=== PATIENT | female | born 1950 | race Caucasian/White ===

== ENCOUNTER 2017-07-23 22:25 | Inpatient (IN) | payer MEDICARE, MEDICAID ==
[~2017-07-23] VITALS: Ht 170.2 cm; Wt 155.1 kg
[~2017-07-23 22:25] MED LIST: BISA-81 PO; CITA20TA11 PO; CROM10DR2 EACHEYE; ETOMIDATE 2MG/ML 10ML VIAL IV ONE; LEVO175T7 PO; LEVO300T2 PO; LOV30 SUBCUT; Levothyroxine Sodium PO; MULT-1146 PO; OXYC10TA48 PO; SUCCINYLCHOLINE CHLORIDE 200MG/10ML VIAL IV ONE; ZOLP10TA2 PO; vanco IV
[2017-07-23] MEDS ORDERED: ASPIRIN 81MG TABLET PO STA (22:32)
[2017-07-23] MEDS ORDERED: METHYLPREDNISOLONE SOD SUCC 125 MG/2 ML VIAL IV STA (22:32)
[2017-07-23] MEDS ORDERED: IPRATROPIUM BROMIDE (0.02%) 0.5MG/2.5ML NEB HHN STA (22:32)
[2017-07-23] MEDS ORDERED: ALBUTEROL (0.083%) 2.5MG/3ML NEB HHN STA (22:32)
[2017-07-23] MEDS ORDERED: NITROGLYCERIN OINT 1GM/INCH UDPKT TD STA (22:32)
[2017-07-23] MEDS ORDERED: FUROSEMIDE 40MG/4ML VIAL IV STA (22:32)
[2017-07-23 22:54] LABS: BASOPHILS % 0.9 % (0.0-2.0); EOSINOPHILS % 3.4 % (0.0-5.0); HEMATOCRIT. 36.7 % (36.0-48.0); HEMOGLOBIN. 11.2 g/dL (12.0-16.0); LYMPHOCYTES % 12.2 % (20.0-50.0); MEAN CORPUSCULAR VOLUME 82.3 fL (81.0-99.0); MEAN PLATELET VOLUME 7.1 fl (7.4-10.4); MONOCYTES % 5.3 % (2.0-8.0); NEUTROPHILS % 78.2 % (40.0-76.0); PLATELET 286 x1000/uL (130-400); RED BLOOD CELL COUNT 4.46 mill/uL (4.2-5.4); RED CELL DISTRIBUTION WIDTH 21.1 % (11.6-14.6)
[2017-07-23 23:01] LABS: CHLORIDE 99 mEq/L (98-107)
[2017-07-23 23:02] LABS: INR 1.1; PARTIAL THROMBOPLASTIN TIME 26.5 sec (23.4-31.0); PROTHROMBIN TIME 11.3 sec (9.4-11.6)
[2017-07-23 23:05] LABS: CARBON DIOXIDE 37 mEq/L (21-32)
[2017-07-23 23:12] LABS: TROPONIN I < 0.02 ng/mL (0.00-0.04)
[2017-07-23] MEDS ORDERED: ASPIRIN 300MG SUPP PR ONE (23:45)
[2017-07-23] MEDS ORDERED: LORAZEPAM 2MG/ML CPJ IV PRN (23:45)
[2017-07-23] MEDS ORDERED: CLONIDINE 0.1MG TABLET PO PRN (23:45)
[2017-07-23] MEDS ORDERED: IPRATROPIUM/ALBUTEROL 0.5-3(2.5)MG/3ML NEB INH PRN (23:45)
[2017-07-23] MEDS ORDERED: MORPHINE SULFATE 4 MG/ML CPJ (NOT FOR IM USE) IV PRN (23:45)
[2017-07-23 23:53] LABS: BG BASE EXCESS 10.6 mmol/L (-2.0-2.0); BG BILEVEL POS AIRWAY PRESSURE 15/5; BG DEOXYHEMOGLOBIN 1.4 % (0.0-5.0); BG FRACTION INSPIRED OXYGEN 100; BG HCO3 ACT 44.3 mmol/L (22.0-26.0); BG METHEMOGLOBIN 0.4 % (0.0-1.5); BG OXYGEN SATURATION 98.6 % (92.0-98.5); BG OXYHEMOGLOBIN 97.2 % (94.0-97.0); BG PCO2 137.1 mmHg (35.0-45.0); BG PH 7.127 (7.350-7.450); BG PO2 181.4 mmHg (75.0-100.0); BG SAMPLE SITE RIGHT BRACHIAL; BG VENT MODE MASK - BIPAP
[2017-07-24] VITALS (77 sets, daily range): BP systolic 92–162; BP diastolic 43–93
[2017-07-24] MEDS ORDERED: SODIUM POLYSTYRENE SULFONATE 15 G/60 ML BOT NG ONE (00:45)
[2017-07-24] MEDS ORDERED: CEFTRIAXONE 1 G PREMIX 50 ML IV ONE (00:45)
[2017-07-24] MEDS ORDERED: SODIUM BICARBONATE 8.4% 1 MEQ/ML 50ML SYR IV ONE (00:45)
[2017-07-24] MEDS ORDERED: INSULIN REGULAR (HUMULIN R) 300UNITS/3ML IV ONE (00:45)
[2017-07-24] MEDS ORDERED: DEXTROSE 50% WATER 50ML SYRINGE IV ONE (00:45)
[2017-07-24] MEDS ORDERED: PROPOFOL 10MG/ML 100ML 100 ML IV ONE ×2 (00:45→04:41)
[2017-07-24] MEDS ORDERED: SUCCINYLCHOLINE CHLORIDE 200MG/10ML VIAL IV ONE (00:45)
[2017-07-24] MEDS ORDERED: ETOMIDATE 2MG/ML 10ML VIAL IV ONE (00:45)
[2017-07-24 02:43] LABS: BG BASE EXCESS 12.6 mmol/L (-2.0-2.0); BG CARBOXYHEMOGLOBIN 0.8 % (0.5-1.5); BG FRACTION INSPIRED OXYGEN 100; BG HCO3 ACT 39.8 mmol/L (22.0-26.0); BG METHEMOGLOBIN 0.2 % (0.0-1.5); BG PCO2 66.4 mmHg (35.0-45.0); BG PH 7.396 (7.350-7.450); BG PO2 109.4 mmHg (75.0-100.0); BG SAMPLE SITE RIGHT BRACHIAL; BG TIDAL VOLUME(mL) 650 mL; BG TOTAL HEMOGLOBIN 11.4 g/dL (12.0-18.0); BG VENT MODE VENT - A/C; BG VENT RATE 14 set
[2017-07-24 02:54] LABS: CLARITY URINE CLEAR (CLEAR); COLOR URINE YELLOW (YELLOW); GLUCOSE URINE NEGATIVE (NEGATIVE); KETONES URINE NEGATIVE (NEGATIVE); LEUKOCYTE ESTERASE URINE NEGATIVE (NEGATIVE); NITRITE URINE NEGATIVE (NEGATIVE); OCCULT BLOOD URINE NEGATIVE (NEGATIVE); PROTEIN URINE NEGATIVE (NEGATIVE); SPECIFIC GRAVITY URINE 1.018 (1.005-1.030); UROBILINOGEN URINE 0.2 E.U./dL (0.2-1.0)
[2017-07-24 03:24] LABS: *AMPHETAMINES SCREEN URINE NEGATIVE (NEGATIVE); *BARBITURATES SCREEN URINE NEGATIVE (NEGATIVE); *BENZODIAZEPINES SCREEN URINE NEGATIVE (NEGATIVE); *COCAINE SCREEN URINE NEGATIVE (NEGATIVE); CANNABINOID URINE SCREEN NEGATIVE (NEGATIVE); METHADONE URINE SCREEN NEGATIVE (NEGATIVE); OPIATES URINE SCREEN PRESUMTIVE POSITIVE (NEGATIVE); PHENCYCLIDINE URINE SCREEN NEGATIVE (NEGATIVE)
[2017-07-24] MEDS ORDERED: PROPOFOL 10MG/ML 100ML 100 ML IV SCH (04:45)
[2017-07-24] MEDS ORDERED: MORPHINE SULFATE 2 MG/ML CPJ (NOT FOR IM USE) IV PRN (07:07)
[2017-07-24] MEDS ORDERED: DEXTROSE 50% WATER 50ML SYRINGE IV PRN (08:30)
[2017-07-24] MEDS: THIAMINE HCL 100MG TABLET PO SCH (08:54)
[2017-07-24] MEDS: ASPIRIN 81MG TABLET NG SCH (08:54)
[2017-07-24] MEDS: FOLIC ACID 1MG TABLET PO SCH (08:54)
[2017-07-24] MEDS: FUROSEMIDE 40MG/4ML VIAL IV SCH ×2 (08:54→16:58)
[2017-07-24] MEDS: METHYLPREDNISOLONE SOD SUCC 125 MG/2 ML VIAL IV SCH ×2 (08:55→17:01)
[2017-07-24] MEDS: ENOXAPARIN 40MG/0.4ML SYR SUBCUT SCH ×2 (08:55→20:46)
[2017-07-24] MEDS: IPRATROPIUM/ALBUTEROL 0.5-3(2.5)MG/3ML NEB HHN SCH ×3 (08:59→20:40)
[2017-07-24] MEDS: BUDESONIDE 0.5MG/2ML NEB HHN SCH ×2 (09:00→20:39)
[2017-07-24] MEDS ORDERED: ASPIRIN 81MG EC TABLET PO SCH (09:00)
[2017-07-24] MEDS: CEFEPIME 1,000 MG in DEXTROSE 5% WATER 50 ML IV SCH ×2 (09:31→20:46)
[2017-07-24] MEDS: PANTOPRAZOLE SODIUM 40 MG/VIAL IV SCH (09:32)
[2017-07-24 10:27] LABS: HEMATOCRIT. 35.5 % (36.0-48.0); MEAN CORPUSCULAR HEMOGLOBIN 25.1 pg (28.0-32.0); MEAN CORPUSCULAR VOLUME 80.9 fL (81.0-99.0); RED BLOOD CELL COUNT 4.39 mill/uL (4.2-5.4)
[2017-07-24] MEDS: METRONIDAZOLE 500 MG PREMIX 100 ML IV SCH ×2 (10:36→17:01)
[2017-07-24 10:52] LABS: CARBON DIOXIDE 33 mEq/L (21-32); CHLORIDE 99 mEq/L (98-107); CREATINE KINASE 71 IU/L (26-192); CREATINE KINASE MB FRACTION 0.6 ng/mL (0.5-3.6); HDL CHOLESTEROL 38 mg/dL (40-59); LDL CHOLESTEROL 84 mg/dL (5-100); T4 FREE 0.78 ng/dL (0.76-1.46); TROPONIN I < 0.02 ng/mL (0.00-0.04)
[2017-07-24 11:13] LABS: MEAN PLATELET VOLUME 7.9 fl (7.4-10.4); PLATELET 232 x1000/uL (130-400)
[2017-07-24 11:16] LABS: PLATELET ESTIMATE NORMAL
[2017-07-24] MEDS ORDERED: BLOOD SUGAR DIAGNOSTIC STRIP TEST SCH (11:30)
[2017-07-24] MEDS ORDERED: INSULIN LISPRO 100 UNITS/ML SUBCUT SCH (12:00)
[2017-07-24] MEDS ORDERED: SODIUM POLYSTYRENE SULFONATE 15 G/60 ML BOT PO NR (13:45)
[2017-07-24 14:56] LABS: CREATINE KINASE 70 IU/L (26-192); CREATINE KINASE MB FRACTION < 0.5 ng/mL (0.5-3.6)
[2017-07-24] MEDS: LEVOTHYROXINE SODIUM 175MCG TABLET PO SCH (16:58)
[2017-07-24] MEDS: BLOOD SUGAR DIAGNOSTIC STRIP TEST SCH ×2 (17:49→23:20)
[2017-07-24] MEDS: INSULIN LISPRO 100 UNITS/ML SUBCUT SCH ×2 (18:36→23:21)
[2017-07-24] MEDS: PROPOFOL 10MG/ML 100ML 100 ML IV PRN (20:06)
[2017-07-25] VITALS (88 sets, daily range): BP systolic 95–152; BP diastolic 48–96
[2017-07-25] MEDS: METRONIDAZOLE 500 MG PREMIX 100 ML IV SCH ×3 (01:06→17:12)
[2017-07-25] MEDS: METHYLPREDNISOLONE SOD SUCC 125 MG/2 ML VIAL IV SCH (01:07)
[2017-07-25] MEDS: PROPOFOL 10MG/ML 100ML 100 ML IV PRN (01:21)
[2017-07-25] MEDS: IPRATROPIUM/ALBUTEROL 0.5-3(2.5)MG/3ML NEB HHN SCH ×5 (01:22→19:40)
[2017-07-25] MEDS: LEVOTHYROXINE SODIUM 175MCG TABLET PO SCH (05:33)
[2017-07-25] MEDS: INSULIN LISPRO 100 UNITS/ML SUBCUT SCH ×3 (05:35→17:51)
[2017-07-25] MEDS: BLOOD SUGAR DIAGNOSTIC STRIP TEST SCH ×3 (05:37→17:09)
[2017-07-25 05:46] LABS: CARBON DIOXIDE 35 mEq/L (21-32); CHLORIDE 99 mEq/L (98-107); HDL CHOLESTEROL 33 mg/dL (40-59); LDL CHOLESTEROL 82 mg/dL (5-100); TROPONIN I < 0.02 ng/mL (0.00-0.04)
[2017-07-25] MEDS: BUDESONIDE 0.5MG/2ML NEB HHN SCH ×2 (08:16→19:40)
[2017-07-25 08:28] LABS: BG BASE EXCESS 12.1 mmol/L (-2.0-2.0); BG CARBOXYHEMOGLOBIN 0.2 % (0.5-1.5); BG FRACTION INSPIRED OXYGEN 90; BG HCO3 ACT 37.2 mmol/L (22.0-26.0); BG METHEMOGLOBIN 0.2 % (0.0-1.5); BG OXYHEMOGLOBIN 97.6 % (94.0-97.0); BG PCO2 50.4 mmHg (35.0-45.0); BG PH 7.486 (7.350-7.450); BG PO2 118.5 mmHg (75.0-100.0); BG SAMPLE SITE LEFT RADIAL; BG TIDAL VOLUME(mL) 650 mL; BG TOTAL HEMOGLOBIN 11.7 g/dL (12.0-18.0); BG VENT MODE VENT - A/C; BG VENT RATE 14 set
[2017-07-25] MEDS ORDERED: FENTANYL CITRATE/PF 500 MCG in SODIUM CHLORIDE 0.9% 40 ML IV PRN (08:30)
[2017-07-25] MEDS ORDERED: MIDAZOLAM HCL 100 MG in DEXT 5% WATER 80 ML IV PRN (08:30)
[2017-07-25] MEDS ORDERED: LIDOCAINE HCL 1% 20ML VIAL (Pyxis) INJ ONE (08:33)
[2017-07-25] MEDS: THIAMINE HCL 100MG TABLET PO SCH (08:47)
[2017-07-25] MEDS: PANTOPRAZOLE SODIUM 40 MG/VIAL IV SCH (08:47)
[2017-07-25] MEDS: ASPIRIN 81MG TABLET NG SCH (08:47)
[2017-07-25] MEDS: FOLIC ACID 1MG TABLET PO SCH (08:47)
[2017-07-25] MEDS: CEFEPIME 1,000 MG in DEXTROSE 5% WATER 50 ML IV SCH ×2 (08:47→21:20)
[2017-07-25] MEDS: ENOXAPARIN 40MG/0.4ML SYR SUBCUT SCH ×2 (08:48→21:20)
[2017-07-25 09:04] LABS: T4 FREE 0.74 ng/dL (0.76-1.46)
[2017-07-25] MEDS: METHYLPREDNISOLONE SOD SUCC 40 MG/ML VIAL IV SCH ×3 (09:20→21:20)
[2017-07-25] MEDS: FUROSEMIDE 40MG/4ML VIAL IV SCH ×2 (09:20→17:13)
[2017-07-25 09:53] LABS: BG CARBOXYHEMOGLOBIN 0.6 % (0.5-1.5); BG DEOXYHEMOGLOBIN 3.7 % (0.0-5.0); BG FRACTION INSPIRED OXYGEN 70; BG HCO3 ACT 38.2 mmol/L (22.0-26.0); BG METHEMOGLOBIN 0.3 % (0.0-1.5); BG OXYGEN SATURATION 96.3 % (92.0-98.5); BG OXYHEMOGLOBIN 95.4 % (94.0-97.0); BG PCO2 46.5 mmHg (35.0-45.0); BG PH 7.533 (7.350-7.450); BG PO2 84.5 mmHg (75.0-100.0); BG SAMPLE SITE LEFT RADIAL; BG TIDAL VOLUME(mL) 650 mL; BG TOTAL HEMOGLOBIN 11.4 g/dL (12.0-18.0); BG VENT MODE VENT - A/C; BG VENT RATE 14 set
[2017-07-26] VITALS (72 sets, daily range): BP systolic 71–209; BP diastolic 31–94
[2017-07-26] MEDS: INSULIN LISPRO 100 UNITS/ML SUBCUT SCH ×4 (00:52→18:30)
[2017-07-26] MEDS: BLOOD SUGAR DIAGNOSTIC STRIP TEST SCH ×4 (00:52→18:25)
[2017-07-26] MEDS: IPRATROPIUM/ALBUTEROL 0.5-3(2.5)MG/3ML NEB HHN SCH ×4 (01:51→19:32)
[2017-07-26] MEDS: METRONIDAZOLE 500 MG PREMIX 100 ML IV SCH ×3 (02:01→16:41)
[2017-07-26] MEDS: METHYLPREDNISOLONE SOD SUCC 40 MG/ML VIAL IV SCH ×2 (05:47→16:41)
[2017-07-26] MEDS: LEVOTHYROXINE SODIUM 175MCG TABLET PO SCH (05:48)
[2017-07-26] MEDS: BUDESONIDE 0.5MG/2ML NEB HHN SCH ×2 (08:10→19:31)
[2017-07-26 08:33] LABS: BG CARBOXYHEMOGLOBIN 0.3 % (0.5-1.5); BG DEOXYHEMOGLOBIN 3.3 % (0.0-5.0); BG FRACTION INSPIRED OXYGEN 60; BG HCO3 ACT 30.5 mmol/L (22.0-26.0); BG METHEMOGLOBIN 0.2 % (0.0-1.5); BG OXYGEN SATURATION 96.7 % (92.0-98.5); BG OXYHEMOGLOBIN 96.2 % (94.0-97.0); BG PCO2 39.4 mmHg (35.0-45.0); BG PH 7.507 (7.350-7.450); BG PO2 92.6 mmHg (75.0-100.0); BG SAMPLE SITE LEFT RADIAL; BG TIDAL VOLUME(mL) 650 mL; BG TOTAL HEMOGLOBIN 11.1 g/dL (12.0-18.0); BG VENT MODE VENT - A/C; BG VENT RATE 14 set
[2017-07-26] MEDS: THIAMINE HCL 100MG TABLET PO SCH (08:58)
[2017-07-26] MEDS: FOLIC ACID 1MG TABLET PO SCH (08:58)
[2017-07-26] MEDS: PANTOPRAZOLE SODIUM 40 MG/VIAL IV SCH (08:58)
[2017-07-26] MEDS: ENOXAPARIN 40MG/0.4ML SYR SUBCUT SCH ×2 (08:58→21:54)
[2017-07-26] MEDS: CEFEPIME 1,000 MG in DEXTROSE 5% WATER 50 ML IV SCH ×2 (08:58→21:54)
[2017-07-26] MEDS: FUROSEMIDE 40MG/4ML VIAL IV SCH ×2 (08:58→16:41)
[2017-07-26] MEDS: ASPIRIN 81MG TABLET NG SCH (08:59)
[2017-07-26 11:21] LABS: HEMATOCRIT. 34.3 % (36.0-48.0); HEMOGLOBIN. 10.9 g/dL (12.0-16.0); MEAN CORPUSCULAR HEMOGLOBIN 25.3 pg (28.0-32.0); MEAN CORPUSCULAR VOLUME 79.5 fL (81.0-99.0); MEAN PLATELET VOLUME 7.6 fl (7.4-10.4); PLATELET 223 x1000/uL (130-400); RED BLOOD CELL COUNT 4.31 mill/uL (4.2-5.4); RED CELL DISTRIBUTION WIDTH 20.3 % (11.6-14.6)
[2017-07-26 11:24] LABS: BG BASE EXCESS 9.2 mmol/L (-2.0-2.0); BG CARBOXYHEMOGLOBIN 0.1 % (0.5-1.5); BG FRACTION INSPIRED OXYGEN 50; BG HCO3 ACT 33.9 mmol/L (22.0-26.0); BG METHEMOGLOBIN 0.3 % (0.0-1.5); BG OXYHEMOGLOBIN 94.6 % (94.0-97.0); BG PCO2 46.7 mmHg (35.0-45.0); BG PH 7.479 (7.350-7.450); BG PO2 79.5 mmHg (75.0-100.0); BG PRESSURE SUPPORT 10; BG SAMPLE SITE RIGHT RADIAL; BG TOTAL HEMOGLOBIN 11.8 g/dL (12.0-18.0); BG VENT MODE VENT - CPAP
[2017-07-26 11:26] LABS: CHLORIDE 101 mEq/L (98-107)
[2017-07-26 11:35] LABS: CARBON DIOXIDE 33 mEq/L (21-32); PHOSPHORUS 5.5 mg/dL (2.5-4.9)
[2017-07-26 12:03] LABS: PLATELET ESTIMATE NORMAL
[2017-07-26] MEDS: OXYCODONE HCL 5MG TABLET NG PRN (16:57)
[2017-07-27] VITALS (46 sets, daily range): BP systolic 105–173; BP diastolic 42–106
[2017-07-27] MEDS: IPRATROPIUM/ALBUTEROL 0.5-3(2.5)MG/3ML NEB HHN SCH ×5 (00:08→21:54)
[2017-07-27] MEDS: BLOOD SUGAR DIAGNOSTIC STRIP TEST SCH ×4 (00:57→17:12)
[2017-07-27] MEDS: INSULIN LISPRO 100 UNITS/ML SUBCUT SCH ×4 (00:57→17:43)
[2017-07-27] MEDS: METRONIDAZOLE 500 MG PREMIX 100 ML IV SCH ×3 (01:07→17:44)
[2017-07-27] MEDS: LEVOTHYROXINE SODIUM 200MCG TABLET PO SCH (06:27)
[2017-07-27] MEDS: BUDESONIDE 0.5MG/2ML NEB HHN SCH ×2 (07:46→21:55)
[2017-07-27] MEDS: CEFEPIME 1,000 MG in DEXTROSE 5% WATER 50 ML IV SCH ×2 (08:42→21:38)
[2017-07-27] MEDS: FOLIC ACID 1MG TABLET PO SCH (08:43)
[2017-07-27] MEDS: FUROSEMIDE 40MG/4ML VIAL IV SCH ×2 (08:43→17:42)
[2017-07-27] MEDS: THIAMINE HCL 100MG TABLET PO SCH (08:43)
[2017-07-27] MEDS: ASPIRIN 81MG TABLET NG SCH (08:43)
[2017-07-27] MEDS: PANTOPRAZOLE SODIUM 40 MG/VIAL IV SCH (08:43)
[2017-07-27] MEDS: ENOXAPARIN 40MG/0.4ML SYR SUBCUT SCH ×2 (08:43→21:38)
[2017-07-27] MEDS: METHYLPREDNISOLONE SOD SUCC 40 MG/ML VIAL IV SCH ×2 (08:43→09:00)
[2017-07-27] MEDS: OXYCODONE HCL 5MG TABLET NG PRN ×3 (08:50→21:40)
[2017-07-28] VITALS (15 sets, daily range): BP systolic 112–149; BP diastolic 58–76
[2017-07-28] MEDS: METRONIDAZOLE 500 MG PREMIX 100 ML IV SCH ×2 (03:06→09:42)
[2017-07-28] MEDS: IPRATROPIUM/ALBUTEROL 0.5-3(2.5)MG/3ML NEB HHN SCH ×4 (03:08→20:56)
[2017-07-28] MEDS: OXYCODONE HCL 5MG TABLET NG PRN ×2 (04:53→12:16)
[2017-07-28] MEDS: INSULIN LISPRO 100 UNITS/ML SUBCUT SCH ×5 (06:00→23:27)
[2017-07-28] MEDS: BLOOD SUGAR DIAGNOSTIC STRIP TEST SCH ×5 (06:28→23:34)
[2017-07-28] MEDS: LEVOTHYROXINE SODIUM 200MCG TABLET PO SCH (06:30)
[2017-07-28] MEDS: BUDESONIDE 0.5MG/2ML NEB HHN SCH ×2 (08:14→20:55)
[2017-07-28] MEDS: ASPIRIN 81MG TABLET NG SCH (09:29)
[2017-07-28] MEDS: THIAMINE HCL 100MG TABLET PO SCH (09:29)
[2017-07-28] MEDS: FUROSEMIDE 40MG/4ML VIAL IV SCH ×2 (09:29→17:22)
[2017-07-28] MEDS: FOLIC ACID 1MG TABLET PO SCH (09:29)
[2017-07-28] MEDS: METHYLPREDNISOLONE SOD SUCC 40 MG/ML VIAL IV SCH (09:30)
[2017-07-28] MEDS: ENOXAPARIN 40MG/0.4ML SYR SUBCUT SCH ×2 (09:30→20:25)
[2017-07-28] MEDS: PANTOPRAZOLE SODIUM 40 MG/VIAL IV SCH (09:38)
[2017-07-28] MEDS: CEFEPIME 1,000 MG in DEXTROSE 5% WATER 50 ML IV SCH (09:39)
[2017-07-28] MEDS ORDERED: VANCOMYCIN 2,000 MG in DEXT 5% WATER 500 ML IV SCH (12:00)
[2017-07-28] MEDS: FLUCONAZOLE 400MG/200ML BAG 200 ML IV SCH (16:24)
[2017-07-28 16:47] LABS: PHOSPHORUS 4.2 mg/dL (2.5-4.9)
[2017-07-28] MEDS: MORPHINE SULFATE 2 MG/ML CPJ (NOT FOR IM USE) IV PRN (22:29)
[2017-07-28] MEDS: ONDANSETRON HCL 4MG/2ML VIAL IV PRN (22:29)
[2017-07-29] VITALS (11 sets, daily range): BP systolic 100–143; BP diastolic 43–86
[2017-07-29] MEDS ORDERED: VANCOMYCIN 750 MG PREMIX 150 ML IV SCH
[2017-07-29] MEDS ORDERED: LORAZEPAM 2MG/ML CPJ IV PRN (00:45)
[2017-07-29] MEDS: LORAZEPAM 0.5MG TABLET PO PRN (00:54)
[2017-07-29] MEDS: IPRATROPIUM/ALBUTEROL 0.5-3(2.5)MG/3ML NEB HHN SCH ×4 (01:08→20:31)
[2017-07-29] MEDS: BLOOD SUGAR DIAGNOSTIC STRIP TEST SCH ×4 (06:00→21:21)
[2017-07-29] MEDS: INSULIN LISPRO 100 UNITS/ML SUBCUT SCH ×4 (06:00→21:00)
[2017-07-29] MEDS: ONDANSETRON HCL 4MG/2ML VIAL IV PRN ×3 (06:07→18:06)
[2017-07-29] MEDS: MORPHINE SULFATE 2 MG/ML CPJ (NOT FOR IM USE) IV PRN ×3 (06:08→18:06)
[2017-07-29] MEDS: LEVOTHYROXINE SODIUM 200MCG TABLET PO SCH (06:44)
[2017-07-29 07:45] LABS: BASOPHILS % 0.1 % (0.0-2.0); EOSINOPHILS % 4.4 % (0.0-5.0); HEMATOCRIT. 34.5 % (36.0-48.0); HEMOGLOBIN. 10.8 g/dL (12.0-16.0); LYMPHOCYTES % 8.1 % (20.0-50.0); MEAN CORPUSCULAR HEMOGLOBIN 24.9 pg (28.0-32.0); MEAN CORPUSCULAR VOLUME 79.5 fL (81.0-99.0); MEAN PLATELET VOLUME 7.7 fl (7.4-10.4); MONOCYTES % 6.3 % (2.0-8.0); NEUTROPHILS % 81.1 % (40.0-76.0); PLATELET 204 x1000/uL (130-400); RED BLOOD CELL COUNT 4.34 mill/uL (4.2-5.4)
[2017-07-29] MEDS: PANTOPRAZOLE SODIUM 40 MG/VIAL IV SCH (08:09)
[2017-07-29] MEDS: METHYLPREDNISOLONE SOD SUCC 40 MG/ML VIAL IV SCH (08:10)
[2017-07-29] MEDS: ASPIRIN 81MG TABLET NG SCH (08:10)
[2017-07-29] MEDS: ENOXAPARIN 40MG/0.4ML SYR SUBCUT SCH ×2 (08:10→21:11)
[2017-07-29] MEDS: FOLIC ACID 1MG TABLET PO SCH (08:10)
[2017-07-29] MEDS: THIAMINE HCL 100MG TABLET PO SCH (08:10)
[2017-07-29] MEDS: FUROSEMIDE 40MG/4ML VIAL IV SCH ×2 (08:10→17:04)
[2017-07-29 08:56] LABS: CARBON DIOXIDE 33 mEq/L (21-32); CHLORIDE 97 mEq/L (98-107)
[2017-07-29] MEDS: BUDESONIDE 0.5MG/2ML NEB HHN SCH ×2 (09:02→20:31)
[2017-07-29] MEDS ORDERED: DOCUSATE SODIUM 250MG CAPSULE PO PRN (10:30)
[2017-07-29] MEDS: DOCUSATE SODIUM 100MG CAPSULE PO SCH ×2 (11:08→17:04)
[2017-07-29] MEDS: FLUCONAZOLE 400MG/200ML BAG 200 ML IV SCH (11:08)
[2017-07-29] MEDS: VANCOMYCIN 750 MG PREMIX 150 ML IV SCH ×2 (13:24→21:11)
[2017-07-29] MEDS: OXYCODONE HCL 5MG TABLET NG PRN ×2 (15:28→21:14)
[2017-07-29] MEDS ORDERED: INSULIN LISPRO 100 UNITS/ML SUBCUT SCH (21:00)
[2017-07-29] MEDS ORDERED: BLOOD SUGAR DIAGNOSTIC STRIP TEST SCH (21:00)
[2017-07-30] VITALS (9 sets, daily range): BP systolic 105–125; BP diastolic 51–70
[2017-07-30] MEDS: LORAZEPAM 0.5MG TABLET PO PRN (00:03)
[2017-07-30] MEDS: IPRATROPIUM/ALBUTEROL 0.5-3(2.5)MG/3ML NEB HHN SCH ×3 (04:42→13:06)
[2017-07-30] MEDS: LEVOTHYROXINE SODIUM 200MCG TABLET PO SCH ×2 (07:00→08:55)
[2017-07-30] MEDS: ONDANSETRON HCL 4MG/2ML VIAL IV PRN (07:00)
[2017-07-30] MEDS: MORPHINE SULFATE 2 MG/ML CPJ (NOT FOR IM USE) IV PRN (07:02)
[2017-07-30] MEDS: BLOOD SUGAR DIAGNOSTIC STRIP TEST SCH ×2 (07:24→12:30)
[2017-07-30 07:39] LABS: BASOPHILS % 0.2 % (0.0-2.0); EOSINOPHILS % 3.3 % (0.0-5.0); HEMATOCRIT. 33.9 % (36.0-48.0); HEMOGLOBIN. 10.7 g/dL (12.0-16.0); LYMPHOCYTES % 10.1 % (20.0-50.0); MEAN CORPUSCULAR HEMOGLOBIN 25.2 pg (28.0-32.0); MEAN CORPUSCULAR VOLUME 79.9 fL (81.0-99.0); MONOCYTES % 6.7 % (2.0-8.0); NEUTROPHILS % 79.7 % (40.0-76.0); PLATELET 215 x1000/uL (130-400); RED BLOOD CELL COUNT 4.23 mill/uL (4.2-5.4); RED CELL DISTRIBUTION WIDTH 20.1 % (11.6-14.6)
[2017-07-30] MEDS: INSULIN LISPRO 100 UNITS/ML SUBCUT SCH ×2 (08:00→12:04)
[2017-07-30] MEDS: BUDESONIDE 0.5MG/2ML NEB HHN SCH (08:10)
[2017-07-30] MEDS: ASPIRIN 81MG TABLET NG SCH (08:55)
[2017-07-30] MEDS: PANTOPRAZOLE SODIUM 40 MG/VIAL IV SCH (08:55)
[2017-07-30] MEDS: FUROSEMIDE 40MG/4ML VIAL IV SCH (08:55)
[2017-07-30] MEDS: FOLIC ACID 1MG TABLET PO SCH (08:55)
[2017-07-30] MEDS: DOCUSATE SODIUM 100MG CAPSULE PO SCH (08:55)
[2017-07-30] MEDS: METHYLPREDNISOLONE SOD SUCC 40 MG/ML VIAL IV SCH (08:55)
[2017-07-30] MEDS: THIAMINE HCL 100MG TABLET PO SCH (08:55)
[2017-07-30] MEDS: ENOXAPARIN 40MG/0.4ML SYR SUBCUT SCH (08:56)
[2017-07-30] MEDS: VANCOMYCIN 750 MG PREMIX 150 ML IV SCH (08:57)
[2017-07-30] MEDS: FLUCONAZOLE 400MG/200ML BAG 200 ML IV SCH (10:59)
[2017-07-30] MEDS: OXYCODONE HCL 5MG TABLET NG PRN (12:15)
[2017-07-31] MEDS ORDERED: VANCOMYCIN 1250MG in DEXTROSE 5% WATER 250ML IV SCH (03:00)
[2017-07-31] MEDS ORDERED: FLUCONAZOLE 200MG TABLET PO SCH (11:00)
== END 2017-07-30 16:20 | DRG 871 ==
LOC: ER 22:53 → MICUSO 23:39 → ENRESERV 07-24 02:24 → 5EST 07-27 16:43
PROVIDERS: ADMIT Internal Medicine Nephrology; ATTEND Internal Medicine Nephrology
PROC: 5A09357 Assistance with Respiratory Ventilation, Less than 24 Consecutive Hours, Continuous Positive Airway Pressure (ICD-10-PCS; 2017-07-23)
PROC: 0BH17EZ Insertion of Endotracheal Airway into Trachea, Via Natural or Artificial Opening (ICD-10-PCS; 2017-07-23)
PROC: 5A1945Z Respiratory Ventilation, 24-96 Consecutive Hours (ICD-10-PCS; principal; 2017-07-24)
PROC: 02HV33Z Insertion of Infusion Device into Superior Vena Cava, Percutaneous Approach (ICD-10-PCS; 2017-07-25)
PROC: B548ZZA Ultrasonography of Superior Vena Cava, Guidance (ICD-10-PCS; 2017-07-25)
PROC: 5A09457 Assistance with Respiratory Ventilation, 24-96 Consecutive Hours, Continuous Positive Airway Pressure (ICD-10-PCS; 2017-07-26)
DX: A41.02 Sepsis due to Methicillin resistant Staphylococcus aureus (principal); J96.02 Acute respiratory failure with hypercapnia; J69.0 Pneumonitis due to inhalation of food and vomit; I50.33 Acute on chronic diastolic (congestive) heart failure; J15.212 Pneumonia due to Methicillin resistant Staphylococcus aureus; E46 Unspecified protein-calorie malnutrition; Z94.89 Other transplanted organ and tissue status; I11.0 Hypertensive heart disease with heart failure; F11.20 Opioid dependence, uncomplicated; E66.2 Morbid (severe) obesity with alveolar hypoventilation; J98.11 Atelectasis; Z68.43 Body mass index [BMI] 50.0-59.9, adult; E87.5 Hyperkalemia; D64.9 Anemia, unspecified; E11.9 Type 2 diabetes mellitus without complications; E78.1 Pure hyperglyceridemia; E89.0 Postprocedural hypothyroidism; F32.9 Major depressive disorder, single episode, unspecified; F41.9 Anxiety disorder, unspecified; G89.4 Chronic pain syndrome; Z96.651 Presence of right artificial knee joint; K21.9 Gastro-esophageal reflux disease without esophagitis; M17.11 Unilateral primary osteoarthritis, right knee; K59.00 Constipation, unspecified; R00.1 Bradycardia, unspecified; Y95 Nosocomial condition; Z82.0 Family history of epilepsy and other diseases of the nervous system; Z82.49 Family history of ischemic heart disease and other diseases of the circulatory system; Z85.42 Personal history of malignant neoplasm of other parts of uterus; Z85.850 Personal history of malignant neoplasm of thyroid; Z88.6 Allergy status to analgesic agent; Z88.8 Allergy status to other drugs, medicaments and biological substances
CPT/HCPCS: 31500; 36415; 36569; 36600; 71010; 76937; 78580; 80048; 80053; 80061; 80202; 80305; 81003; 82375; 82550; 82553; 82805; 82962; 83036; 83605; 83735; 83880; 83970; 84100; 84439; 84443; 84481; 84484; 85025; 85379; 85610; 85730; 87040; 87070; 87077; 87086; 87106; 92610; 93005; 93306; 93970; 94002; 94003; 94640; 94660; 96365; 96375; 97162; 97166; 99291; A6261; C1725; C1893; C9113; J0330; J0692; J0696; J1450; J1650; J1815; J1940; J2250; J2270; J2405; J2704; J2920; J2930; J3010; J3370; J3490; J7050; J7060; J7611; J7620; J7626; A4315

== ENCOUNTER 2017-10-02 07:22 | Inpatient (IN) | payer MEDICARE, MEDICAID ==
[~2017-10-02] VITALS: Ht 172.7 cm; Wt 154.2 kg
[~2017-10-02 07:22] MED LIST changes: -ETOMIDATE 2MG/ML 10ML VIAL IV ONE; -SUCCINYLCHOLINE CHLORIDE 200MG/10ML VIAL IV ONE
[2017-10-02] MEDS ORDERED: METHYLPREDNISOLONE SOD SUCC 125 MG/2 ML VIAL IV STA (07:37)
[2017-10-02] MEDS ORDERED: HYDROMORPHONE HCL 2MG TABLET PO ONE (07:45)
[2017-10-02] MEDS ORDERED: IPRATROPIUM/ALBUTEROL 0.5-3(2.5)MG/3ML NEB HHN ONE (07:45)
[2017-10-02 08:02] LABS: BASOPHILS % 0.6 % (0.0-2.0); EOSINOPHILS % 4.9 % (0.0-5.0); HEMATOCRIT. 33.7 % (36.0-48.0); HEMOGLOBIN. 10.5 g/dL (12.0-16.0); LYMPHOCYTES % 11.7 % (20.0-50.0); MEAN CORPUSCULAR HEMOGLOBIN 24.9 pg (28.0-32.0); MEAN CORPUSCULAR VOLUME 79.8 fL (81.0-99.0); MEAN PLATELET VOLUME 6.6 fl (7.4-10.4); MONOCYTES % 5.8 % (2.0-8.0); PLATELET 330 x1000/uL (130-400); RED BLOOD CELL COUNT 4.22 mill/uL (4.2-5.4); RED CELL DISTRIBUTION WIDTH 19.3 % (11.6-14.6)
[2017-10-02 08:11] LABS: PARTIAL THROMBOPLASTIN TIME 26.5 sec (23.4-31.0); PROTHROMBIN TIME 10.8 sec (9.4-11.6)
[2017-10-02 08:18] LABS: CARBON DIOXIDE 36 mEq/L (21-32); CHLORIDE 99 mEq/L (98-107); TROPONIN I < 0.02 ng/mL (0.00-0.04)
[2017-10-02 08:55] LABS: CLARITY URINE CLEAR (CLEAR); COLOR URINE YELLOW (YELLOW); KETONES URINE NEGATIVE (NEGATIVE); LEUKOCYTE ESTERASE URINE TRACE (NEGATIVE); NITRITE URINE NEGATIVE (NEGATIVE); OCCULT BLOOD URINE NEGATIVE (NEGATIVE); PROTEIN URINE NEGATIVE (NEGATIVE); SPECIFIC GRAVITY URINE 1.019 (1.005-1.030); UROBILINOGEN URINE 0.2 E.U./dL (0.2-1.0)
[2017-10-02] MEDS ORDERED: SODIUM POLYSTYRENE SULFONATE 15 G/60 ML BOT PO ONE (10:45)
[2017-10-02 12:30] VITALS: BP 120/57
[2017-10-02] MEDS ORDERED: CLONIDINE 0.1MG TABLET PO PRN (12:30)
[2017-10-02] MEDS ORDERED: ACETAMINOPHEN 325MG TABLET PO PRN (12:30)
[2017-10-02] MEDS ORDERED: LORAZEPAM 2MG/ML CPJ IV PRN (12:30)
[2017-10-02] MEDS ORDERED: ONDANSETRON HCL 4MG/2ML VIAL IV PRN (12:30)
[2017-10-02] MEDS: FUROSEMIDE 40MG/4ML VIAL IVP SCH (13:02)
[2017-10-02 13:17] VITALS: BP 120/57
[2017-10-02] MEDS: HYDROMORPHONE HCL/PF 2MG/ML CPJ IV PRN ×3 (13:31→21:15)
[2017-10-02] MEDS ORDERED: IPRATROPIUM/ALBUTEROL 0.5-3(2.5)MG/3ML NEB HHN PRN (14:15)
[2017-10-02] MEDS: IPRATROPIUM/ALBUTEROL 0.5-3(2.5)MG/3ML NEB HHN SCH ×3 (15:20→23:53)
[2017-10-02 16:00] VITALS: BP 133/68
[2017-10-02] MEDS: BUDESONIDE 0.5MG/2ML NEB HHN SCH (19:41)
[2017-10-02 20:00] VITALS: BP 124/65
[2017-10-02 20:25] LABS: CLARITY URINE CLEAR (CLEAR); COLOR URINE YELLOW (YELLOW); KETONES URINE NEGATIVE (NEGATIVE); LEUKOCYTE ESTERASE URINE TRACE (NEGATIVE); NITRITE URINE NEGATIVE (NEGATIVE); OCCULT BLOOD URINE NEGATIVE (NEGATIVE); PROTEIN URINE NEGATIVE (NEGATIVE); SPECIFIC GRAVITY URINE 1.017 (1.005-1.030); UROBILINOGEN URINE 0.2 E.U./dL (0.2-1.0)
[2017-10-02] MEDS ORDERED: ENOXAPARIN 30MG/0.3ML SYR SUBCUT SCH (21:00)
[2017-10-02 21:10] LABS: *AMPHETAMINES SCREEN URINE NEGATIVE (NEGATIVE); *BARBITURATES SCREEN URINE NEGATIVE (NEGATIVE); *BENZODIAZEPINES SCREEN URINE NEGATIVE (NEGATIVE); *COCAINE SCREEN URINE NEGATIVE (NEGATIVE); CANNABINOID URINE SCREEN NEGATIVE (NEGATIVE); METHADONE URINE SCREEN NEGATIVE (NEGATIVE); OPIATES URINE SCREEN PRESUMTIVE POSITIVE (NEGATIVE); PHENCYCLIDINE URINE SCREEN NEGATIVE (NEGATIVE)
[2017-10-02] MEDS: ZOLPIDEM TARTRATE 5MG TABLET PO SCH (21:12)
[2017-10-02] MEDS: CITALOPRAM HYDROBROMIDE 20MG TABLET PO SCH (21:13)
[2017-10-02] MEDS: ENOXAPARIN 40MG/0.4ML SYR SUBCUT SCH (21:14)
[2017-10-03] VITALS: BP 138/76
[2017-10-03] MEDS: HYDROMORPHONE HCL/PF 2MG/ML CPJ IV PRN ×8 (00:03→19:40)
[2017-10-03 04:00] VITALS: BP 148/69
[2017-10-03] MEDS: IPRATROPIUM/ALBUTEROL 0.5-3(2.5)MG/3ML NEB HHN SCH ×4 (04:07→15:56)
[2017-10-03] MEDS ORDERED: LEVOTHYROXINE SODIUM 150MCG TABLET PO SCH (07:10)
[2017-10-03 07:28] LABS: HEMATOCRIT. 33.1 % (36.0-48.0); HEMOGLOBIN. 10.4 g/dL (12.0-16.0); MEAN CORPUSCULAR HEMOGLOBIN 25.4 pg (28.0-32.0); MEAN CORPUSCULAR VOLUME 80.7 fL (81.0-99.0); MEAN PLATELET VOLUME 7.2 fl (7.4-10.4); PLATELET 335 x1000/uL (130-400); RED CELL DISTRIBUTION WIDTH 18.6 % (11.6-14.6)
[2017-10-03 07:54] LABS: PHOSPHORUS 4.2 mg/dL (2.5-4.9)
[2017-10-03] MEDS: FUROSEMIDE 40MG/4ML VIAL IVP SCH (08:57)
[2017-10-03] MEDS: ENOXAPARIN 40MG/0.4ML SYR SUBCUT SCH ×2 (08:58→20:46)
[2017-10-03] MEDS ORDERED: MEDICATION NOT ON FORMULARY EA (Levothyroxine Sodium 1 TAB) PO SCH (09:00)
[2017-10-03] MEDS ORDERED: SODIUM POLYSTYRENE SULFONATE 15 G/60 ML BOT PO SCH (09:00)
[2017-10-03] MEDS ORDERED: BISACODYL 5MG TABLET PO SCH (09:00)
[2017-10-03] MEDS: BUDESONIDE 0.5MG/2ML NEB HHN SCH (09:04)
[2017-10-03 12:00] VITALS: BP 126/60
[2017-10-03 12:41] LABS: NUCLEATED RED BLOOD CELLS 1 /100 WBC
[2017-10-03 12:42] LABS: PLATELET ESTIMATE NORMAL
[2017-10-03] MEDS ORDERED: SODIUM POLYSTYRENE SULFONATE 15 G/60 ML BOT PO NR (13:45)
[2017-10-03 16:00] VITALS: BP 121/65
[2017-10-03 17:49] VITALS: BP 121/60
[2017-10-03 20:00] VITALS: BP 126/63
[2017-10-03] MEDS: ZOLPIDEM TARTRATE 5MG TABLET PO SCH (20:46)
[2017-10-03] MEDS: CITALOPRAM HYDROBROMIDE 20MG TABLET PO SCH (20:46)
== END 2017-10-03 21:15 | DRG 189 ==
LOC: ER 08:23 → 8WST 10:39 → ENRESERV 10:58
PROVIDERS: ADMIT Internal Medicine Nephrology; ATTEND Internal Medicine Nephrology
DX: J96.00 Acute respiratory failure, unspecified whether with hypoxia or hypercapnia (principal); N17.9 Acute kidney failure, unspecified; I50.33 Acute on chronic diastolic (congestive) heart failure; E44.1 Mild protein-calorie malnutrition; Z68.43 Body mass index [BMI] 50.0-59.9, adult; I11.0 Hypertensive heart disease with heart failure; E11.22 Type 2 diabetes mellitus with diabetic chronic kidney disease; E87.5 Hyperkalemia; E66.01 Morbid (severe) obesity due to excess calories; D64.9 Anemia, unspecified; E89.0 Postprocedural hypothyroidism; G47.33 Obstructive sleep apnea (adult) (pediatric); I50.9 Heart failure, unspecified; J44.9 Chronic obstructive pulmonary disease, unspecified; K21.9 Gastro-esophageal reflux disease without esophagitis; Z82.49 Family history of ischemic heart disease and other diseases of the circulatory system; Z85.850 Personal history of malignant neoplasm of thyroid; Z86.73 Personal history of transient ischemic attack (TIA), and cerebral infarction without residual deficits; Z90.710 Acquired absence of both cervix and uterus; Z96.659 Presence of unspecified artificial knee joint; F32.9 Major depressive disorder, single episode, unspecified; F41.9 Anxiety disorder, unspecified; Z88.6 Allergy status to analgesic agent; Z88.8 Allergy status to other drugs, medicaments and biological substances; Z79.899 Other long term (current) drug therapy
CPT/HCPCS: 36415; 51702; 71045; 80048; 80053; 80305; 81001; 82962; 83735; 83880; 84100; 84484; 85025; 85610; 85730; 87804; 93005; 93971; 94640; 96374; 99285; J1170; J1650; J1940; J2930; J7620; J7626; A4315

== ENCOUNTER 2018-02-11 19:07 | Inpatient (IN) | payer MEDICARE, MEDICAID ==
[~2018-02-11] VITALS: Ht 170.2 cm; Wt 157.0 kg
[~2018-02-11 19:07] MED LIST changes: +AMLO2.5T45 MT; +ASPI-1158 MT; +BIMA2.5D4 EACHEYE; +BUDE0.5A3 NEB; +CALC667C MT; +CHOL500010 MT; +CITA10TA16 MT; -CITA20TA11 PO; +CITA20TA75 PO; +CROM10DR7 EACHEYE; +FERR324T4 MT; +FURO-151 MT; +LACT10SO6 MT; +LISI10TA5 MT; +OCD MT; +PANT40TA4 MT
[2018-02-11] MEDS ORDERED: IPRATROPIUM BROMIDE (0.02%) 0.5MG/2.5ML NEB HHN STA (20:24)
[2018-02-11] MEDS ORDERED: ALBUTEROL (0.083%) 2.5MG/3ML NEB HHN STA (20:24)
[2018-02-11] MEDS ORDERED: SODIUM CHLORIDE 0.9% 1,000 ML IV ONE (20:24)
[2018-02-11] MEDS ORDERED: METHYLPREDNISOLONE SOD SUCC 125 MG/2 ML VIAL IV STA (20:24)
[2018-02-11] MEDS ORDERED: VANCOMYCIN 1,250 MG in DEXT 5% WATER 250 ML IV STA (20:56)
[2018-02-11] MEDS ORDERED: PIPERACILLIN SODIUM/TAZOBACTAM 4.5 G in DEXT 5% WATER 100 ML IV SCH (21:00)
[2018-02-11 21:08] LABS: HEMATOCRIT. 33.7 % (36.0-48.0); HEMOGLOBIN. 10.4 g/dL (12.0-16.0); MEAN CORPUSCULAR HEMOGLOBIN 23.4 pg (28.0-32.0); MEAN PLATELET VOLUME 7.1 fl (7.4-10.4); PLATELET 293 x1000/uL (130-400); RED BLOOD CELL COUNT 4.44 mill/uL (4.2-5.4); RED CELL DISTRIBUTION WIDTH 20.9 % (11.6-14.6)
[2018-02-11 21:14] LABS: CHLORIDE 90 mEq/L (98-107)
[2018-02-11 21:16] LABS: PARTIAL THROMBOPLASTIN TIME 30.6 sec (23.4-31.0); PROTHROMBIN TIME 10.5 sec (9.4-11.6)
[2018-02-11 21:20] LABS: ETHANOL BLOOD < 10 mg/dL
[2018-02-11] MEDS ORDERED: MIDODRINE HCL 5MG TABLET PO ONE (21:30)
[2018-02-11] MEDS ORDERED: OXYCODONE HCL/ACETAMINOPHEN 5/325MG TABLET PO ONE (21:30)
[2018-02-11 21:32] LABS: PLATELET ESTIMATE NORMAL
[2018-02-11] MEDS ORDERED: SODIUM POLYSTYRENE SULFONATE 15 G/60 ML BOT PO ONE (22:15)
[2018-02-11] MEDS ORDERED: MAGNESIUM/ALUMINUM HYDROXIDE/SIMETHICONE 30ML UDC PO PRN (22:45)
[2018-02-11] MEDS ORDERED: CLONIDINE 0.1MG TABLET PO PRN (22:45)
[2018-02-11] MEDS ORDERED: ACETAMINOPHEN 325MG TABLET PO PRN (22:45)
[2018-02-11] MEDS ORDERED: HYDROMORPHONE HCL/PF 2MG/ML CPJ IV PRN (22:45)
[2018-02-11 22:50] VITALS: BP 89/52
[2018-02-11 23:00] VITALS: BP 83/45
[2018-02-12] VITALS (81 sets, daily range): BP systolic 82–164; BP diastolic 39–106
[2018-02-12] MEDS ORDERED: NOREPINEPHRINE 16 MG in DEXT 5% WATER 234 ML IV PRN (00:53)
[2018-02-12] MEDS: METHYLPREDNISOLONE SOD SUCC 125 MG/2 ML VIAL IV SCH ×3 (06:14→22:35)
[2018-02-12 06:27] LABS: CHLORIDE 91 mEq/L (98-107)
[2018-02-12 06:35] LABS: CREATINE KINASE 198 IU/L (26-192)
[2018-02-12 06:37] LABS: CREATINE KINASE MB FRACTION 1.7 ng/mL (0.5-3.6)
[2018-02-12] MEDS ORDERED: INSULIN REGULAR (HUMULIN R) 300UNITS/3ML IV SCH (07:00)
[2018-02-12] MEDS ORDERED: DEXTROSE 50% WATER 50ML SYRINGE IV SCH (07:00)
[2018-02-12] MEDS ORDERED: SODIUM POLYSTYRENE SULFONATE 15 G/60 ML BOT NG SCH (07:00)
[2018-02-12 07:58] LABS: BG BASE EXCESS -3.3 mmol/L (-2.0-2.0); BG CARBOXYHEMOGLOBIN 1.7 % (0.5-1.5); BG DEOXYHEMOGLOBIN 2.7 % (0.0-5.0); BG FRACTION INSPIRED OXYGEN 50; BG HCO3 ACT 27.8 mmol/L (22.0-26.0); BG METHEMOGLOBIN 0.2 % (0.0-1.5); BG OXYGEN SATURATION 97.2 % (92.0-98.5); BG OXYHEMOGLOBIN 95.4 % (94.0-97.0); BG PCO2 88.8 mmHg (35.0-45.0); BG PH 7.113 (7.350-7.450); BG PO2 100.6 mmHg (75.0-100.0); BG SAMPLE SITE RIGHT BRACHIAL; BG TOTAL HEMOGLOBIN 11.3 g/dL (12.0-18.0); BG VENT MODE MASK - SIMPLE
[2018-02-12] MEDS ORDERED: PANTOPRAZOLE SODIUM 40 MG/VIAL IV NR (09:15)
[2018-02-12] MEDS: ENOXAPARIN 40MG/0.4ML SYR SUBCUT SCH (09:44)
[2018-02-12 10:47] LABS: CLARITY URINE CLOUDY (CLEAR); COLOR URINE YELLOW (YELLOW); KETONES URINE NEGATIVE (NEGATIVE); LEUKOCYTE ESTERASE URINE 1+ (NEGATIVE); NITRITE URINE NEGATIVE (NEGATIVE); OCCULT BLOOD URINE NEGATIVE (NEGATIVE); PROTEIN URINE 2+ (NEGATIVE); SPECIFIC GRAVITY URINE 1.019 (1.005-1.030); UROBILINOGEN URINE 0.2 E.U./dL (0.2-1.0)
[2018-02-12 10:53] LABS: BG BASE EXCESS -6.5 mmol/L (-2.0-2.0); BG BILEVEL POS AIRWAY PRESSURE ST=18/5; BG CARBOXYHEMOGLOBIN 0.5 % (0.5-1.5); BG DEOXYHEMOGLOBIN 5.9 % (0.0-5.0); BG FRACTION INSPIRED OXYGEN 50; BG HCO3 ACT 22.8 mmol/L (22.0-26.0); BG METHEMOGLOBIN 0.3 % (0.0-1.5); BG OXYGEN SATURATION 94.1 % (92.0-98.5); BG OXYHEMOGLOBIN 93.3 % (94.0-97.0); BG PH 7.163 (7.350-7.450); BG PO2 75.3 mmHg (75.0-100.0); BG PRESSURE SUPPORT 13; BG SAMPLE SITE RIGHT BRACHIAL; BG TOTAL HEMOGLOBIN 11.5 g/dL (12.0-18.0); BG VENT MODE MASK - BIPAP; BG VENT RATE 16 set
[2018-02-12] MEDS ORDERED: DEXTROSE 50% WATER 50ML SYRINGE IV PRN (12:00)
[2018-02-12 12:38] LABS: HEMATOCRIT. 31.9 % (36.0-48.0); HEMOGLOBIN. 9.9 g/dL (12.0-16.0); MEAN CORPUSCULAR HEMOGLOBIN 23.8 pg (28.0-32.0); MEAN CORPUSCULAR VOLUME 76.5 fL (81.0-99.0); MEAN PLATELET VOLUME 7.4 fl (7.4-10.4); PLATELET 246 x1000/uL (130-400); RED BLOOD CELL COUNT 4.17 mill/uL (4.2-5.4); RED CELL DISTRIBUTION WIDTH 20.8 % (11.6-14.6)
[2018-02-12 12:51] LABS: T4 FREE 0.52 ng/dL (0.76-1.46)
[2018-02-12] MEDS: INSULIN LISPRO 100 UNITS/ML SUBCUT SCH ×3 (13:17→22:22)
[2018-02-12 13:35] LABS: BG BASE EXCESS -1.7 mmol/L (-2.0-2.0); BG BILEVEL POS AIRWAY PRESSURE ST=18/5; BG CARBOXYHEMOGLOBIN 1.2 % (0.5-1.5); BG DEOXYHEMOGLOBIN 5.5 % (0.0-5.0); BG FRACTION INSPIRED OXYGEN 50; BG HCO3 ACT 27.4 mmol/L (22.0-26.0); BG METHEMOGLOBIN 0.2 % (0.0-1.5); BG OXYGEN SATURATION 94.4 % (92.0-98.5); BG OXYHEMOGLOBIN 93.1 % (94.0-97.0); BG PH 7.205 (7.350-7.450); BG PO2 74.9 mmHg (75.0-100.0); BG PRESSURE SUPPORT 13; BG SAMPLE SITE RIGHT BRACHIAL; BG TOTAL HEMOGLOBIN 11.4 g/dL (12.0-18.0); BG VENT MODE MASK - BIPAP; BG VENT RATE 24 set
[2018-02-12] MEDS ORDERED: SODIUM POLYSTYRENE SULFONATE 15 G/60 ML BOT PO NR (14:15)
[2018-02-12 14:23] LABS: PLATELET ESTIMATE NORMAL
[2018-02-12] MEDS ORDERED: HYDROMORPHONE HCL/PF 2MG/ML CPJ IV NR (15:45)
[2018-02-12 16:58] LABS: CREATINE KINASE 131 IU/L (26-192)
[2018-02-12 16:59] LABS: CREATINE KINASE MB FRACTION 1.1 ng/mL (0.5-3.6)
[2018-02-12] MEDS ORDERED: HEPARIN SODIUM 1,000 UNIT/1ML VIAL IV ONE (17:00)
[2018-02-12] MEDS: BLOOD SUGAR DIAGNOSTIC STRIP TEST SCH ×2 (17:29→21:00)
[2018-02-12] MEDS ORDERED: VANCOMYCIN 1 G PREMIX 200 ML IV SCH (18:00)
[2018-02-12] MEDS: PIPERACILLIN/TAZ 2.25G PREMIX 50 ML IV SCH (18:08)
[2018-02-13] VITALS (96 sets, daily range): BP systolic 89–156; BP diastolic 44–86
[2018-02-13] MEDS: PIPERACILLIN/TAZ 2.25G PREMIX 50 ML IV SCH ×2 (05:04→10:19)
[2018-02-13 06:06] LABS: HEMATOCRIT. 31.7 % (36.0-48.0); MEAN CORPUSCULAR HEMOGLOBIN 23.6 pg (28.0-32.0); MEAN CORPUSCULAR VOLUME 74.4 fL (81.0-99.0); MEAN PLATELET VOLUME 7.7 fl (7.4-10.4); PLATELET 349 x1000/uL (130-400); RED BLOOD CELL COUNT 4.25 mill/uL (4.2-5.4); RED CELL DISTRIBUTION WIDTH 21.3 % (11.6-14.6)
[2018-02-13] MEDS: BLOOD SUGAR DIAGNOSTIC STRIP TEST SCH ×4 (06:30→20:22)
[2018-02-13] MEDS: METHYLPREDNISOLONE SOD SUCC 125 MG/2 ML VIAL IV SCH (08:40)
[2018-02-13] MEDS: NYSTATIN POWDER 15GM TOP SCH ×2 (08:40→17:10)
[2018-02-13] MEDS: INSULIN LISPRO 100 UNITS/ML SUBCUT SCH ×4 (08:41→20:29)
[2018-02-13] MEDS: ENOXAPARIN 40MG/0.4ML SYR SUBCUT SCH (08:41)
[2018-02-13] MEDS: IPRATROPIUM/ALBUTEROL 0.5-3(2.5)MG/3ML NEB INH PRN ×2 (08:51→16:53)
[2018-02-13] MEDS ORDERED: PANTOPRAZOLE SODIUM 40 MG/VIAL IV SCH (09:00)
[2018-02-13] MEDS ORDERED: VANCOMYCIN 500 MG PREMIX 100 ML IV SCH (10:00)
[2018-02-13 10:53] LABS: BG BASE EXCESS 6.6 mmol/L (-2.0-2.0); BG BILEVEL POS AIRWAY PRESSURE ST=15/5; BG CARBOXYHEMOGLOBIN 0.8 % (0.5-1.5); BG DEOXYHEMOGLOBIN 3.4 % (0.0-5.0); BG FRACTION INSPIRED OXYGEN 50; BG HCO3 ACT 32.6 mmol/L (22.0-26.0); BG OXYGEN SATURATION 96.6 % (92.0-98.5); BG OXYHEMOGLOBIN 95.8 % (94.0-97.0); BG PCO2 53.6 mmHg (35.0-45.0); BG PH 7.402 (7.350-7.450); BG PO2 88.1 mmHg (75.0-100.0); BG PRESSURE SUPPORT 10; BG SAMPLE SITE RIGHT BRACHIAL; BG VENT MODE MASK - BIPAP; BG VENT RATE 24 set
[2018-02-13] MEDS ORDERED: LEVOTHYROXINE SODIUM 50MCG TABLET PO SCH (11:00)
[2018-02-13] MEDS ORDERED: LEVOFLOXACIN 500MG TABLET PO NR (12:30)
[2018-02-13] MEDS: METHYLPREDNISOLONE SOD SUCC 40 MG/ML VIAL IV SCH ×2 (12:46→20:23)
[2018-02-13 13:05] LABS: PLATELET ESTIMATE NORMAL
[2018-02-13] MEDS: HYDROCODONE/ACETAMINOPHEN 5/325MG TABLET PO PRN ×3 (14:12→21:20)
[2018-02-13] MEDS: DIPHENHYDRAMINE 50MG/ML VIAL IV PRN (17:38)
[2018-02-13] MEDS: LEVOTHYROXINE SODIUM 100 MCG/ VIAL IV SCH (21:19)
[2018-02-13] MEDS ORDERED: INSULIN GLARGINE UD 100 UNITS/ML SYR SUBCUT SCH (22:00)
[2018-02-14] VITALS (88 sets, daily range): BP systolic 103–194; BP diastolic 56–153
[2018-02-14] MEDS: HYDROCODONE/ACETAMINOPHEN 5/325MG TABLET PO PRN ×4 (04:55→20:48)
[2018-02-14] MEDS: METHYLPREDNISOLONE SOD SUCC 40 MG/ML VIAL IV SCH (05:40)
[2018-02-14] MEDS: OMEPRAZOLE 20MG CAPSULE EXTENDED RELEASE PO SCH (05:40)
[2018-02-14] MEDS: BLOOD SUGAR DIAGNOSTIC STRIP TEST SCH ×4 (06:06→20:49)
[2018-02-14] MEDS: INSULIN LISPRO 100 UNITS/ML SUBCUT SCH ×4 (06:11→20:48)
[2018-02-14 06:47] LABS: HEMATOCRIT. 30.5 % (36.0-48.0); HEMOGLOBIN. 9.6 g/dL (12.0-16.0); MEAN CORPUSCULAR HEMOGLOBIN 23.5 pg (28.0-32.0); MEAN CORPUSCULAR VOLUME 74.3 fL (81.0-99.0); MEAN PLATELET VOLUME 7.3 fl (7.4-10.4); PLATELET 278 x1000/uL (130-400); RED CELL DISTRIBUTION WIDTH 20.4 % (11.6-14.6)
[2018-02-14] MEDS ORDERED: INSULIN GLARGINE UD 100 UNITS/ML SYR SUBCUT SCH ×2 (10:00→22:00)
[2018-02-14] MEDS: LIOTHYRONINE SODIUM 5MCG TABLET PO SCH ×2 (10:15→16:59)
[2018-02-14] MEDS: ENOXAPARIN 40MG/0.4ML SYR SUBCUT SCH (10:15)
[2018-02-14] MEDS: NYSTATIN POWDER 15GM TOP SCH ×2 (10:16→16:59)
[2018-02-14] MEDS: LEVOTHYROXINE SODIUM 100 MCG/ VIAL IV SCH (10:16)
[2018-02-14] MEDS: LEVOFLOXACIN 250MG TABLET PO SCH (10:51)
[2018-02-14] MEDS ORDERED: HEPARIN SODIUM 1,000 UNIT/1ML VIAL IV NR (11:30)
[2018-02-14 11:54] LABS: PLATELET ESTIMATE NORMAL
[2018-02-14] MEDS: PREDNISONE 20MG TABLET PO SCH (16:59)
[2018-02-14] MEDS ORDERED: VANCOMYCIN 750 MG PREMIX 150 ML IV SCH (17:00)
[2018-02-14] MEDS: DIPHENHYDRAMINE 50MG/ML VIAL IV PRN (21:31)
[2018-02-15] VITALS (53 sets, daily range): BP systolic 114–170; BP diastolic 65–99
[2018-02-15 05:33] LABS: BASOPHILS % 0.1 % (0.0-2.0); HEMATOCRIT. 30.8 % (36.0-48.0); HEMOGLOBIN. 9.8 g/dL (12.0-16.0); LYMPHOCYTES % 7.2 % (20.0-50.0); MEAN CORPUSCULAR HEMOGLOBIN 23.8 pg (28.0-32.0); MEAN CORPUSCULAR VOLUME 75.1 fL (81.0-99.0); MEAN PLATELET VOLUME 7.4 fl (7.4-10.4); MONOCYTES % 7.3 % (2.0-8.0); NEUTROPHILS % 85.4 % (40.0-76.0); PLATELET 272 x1000/uL (130-400); RED CELL DISTRIBUTION WIDTH 21.1 % (11.6-14.6)
[2018-02-15] MEDS: BLOOD SUGAR DIAGNOSTIC STRIP TEST SCH ×4 (05:34→21:10)
[2018-02-15] MEDS: INSULIN LISPRO 100 UNITS/ML SUBCUT SCH ×5 (06:01→21:17)
[2018-02-15] MEDS: OMEPRAZOLE 20MG CAPSULE EXTENDED RELEASE PO SCH (06:01)
[2018-02-15] MEDS: PREDNISONE 20MG TABLET PO SCH ×2 (08:11→18:03)
[2018-02-15] MEDS: LIOTHYRONINE SODIUM 5MCG TABLET PO SCH ×2 (08:11→18:03)
[2018-02-15] MEDS: ENOXAPARIN 40MG/0.4ML SYR SUBCUT SCH (08:12)
[2018-02-15] MEDS: HYDROCODONE/ACETAMINOPHEN 5/325MG TABLET PO PRN (08:12)
[2018-02-15] MEDS: LEVOTHYROXINE SODIUM 100 MCG/ VIAL IV SCH (09:13)
[2018-02-15] MEDS: DIPHENHYDRAMINE 50MG/ML VIAL IV PRN ×2 (09:13→18:59)
[2018-02-15] MEDS: NYSTATIN POWDER 15GM TOP SCH ×2 (09:14→18:59)
[2018-02-15] MEDS ORDERED: INSULIN GLARGINE UD 100 UNITS/ML SYR SUBCUT SCH (10:00)
[2018-02-15] MEDS ORDERED: HYDRALAZINE 20MG/ML VIAL IV PRN (10:30)
[2018-02-15] MEDS: LEVOFLOXACIN 250MG TABLET PO SCH (11:40)
[2018-02-15] MEDS: AMLODIPINE 5MG TABLET PO SCH ×2 (11:41→21:16)
[2018-02-15] MEDS: ONDANSETRON HCL 4MG/2ML VIAL IV PRN (12:27)
[2018-02-15] MEDS: OXYCODONE HCL 5MG TABLET PO PRN ×2 (14:07→22:57)
[2018-02-15] MEDS: BISACODYL 5MG TABLET PO PRN (18:59)
[2018-02-15] MEDS: INSULIN GLARGINE UD 100 UNITS/ML SYR SUBCUT SCH (21:17)
[2018-02-16] VITALS (17 sets, daily range): BP systolic 97–145; BP diastolic 59–90
[2018-02-16] MEDS: IPRATROPIUM/ALBUTEROL 0.5-3(2.5)MG/3ML NEB INH PRN ×2 (01:24→20:41)
[2018-02-16] MEDS: OXYCODONE HCL 5MG TABLET PO PRN ×4 (04:31→22:41)
[2018-02-16 06:19] LABS: BASOPHILS % 0.1 % (0.0-2.0); EOSINOPHILS % 0.3 % (0.0-5.0); HEMATOCRIT. 31.9 % (36.0-48.0); HEMOGLOBIN. 9.9 g/dL (12.0-16.0); LYMPHOCYTES % 10.5 % (20.0-50.0); MEAN CORPUSCULAR HEMOGLOBIN 23.2 pg (28.0-32.0); MEAN CORPUSCULAR VOLUME 75.3 fL (81.0-99.0); MEAN PLATELET VOLUME 7.2 fl (7.4-10.4); MONOCYTES % 12.7 % (2.0-8.0); NEUTROPHILS % 76.4 % (40.0-76.0); PLATELET 254 x1000/uL (130-400); RED BLOOD CELL COUNT 4.24 mill/uL (4.2-5.4); RED CELL DISTRIBUTION WIDTH 20.9 % (11.6-14.6)
[2018-02-16] MEDS: PANTOPRAZOLE 40MG DR TABLET PO SCH (06:36)
[2018-02-16] MEDS: INSULIN LISPRO 100 UNITS/ML SUBCUT SCH ×7 (07:30→22:28)
[2018-02-16] MEDS: BLOOD SUGAR DIAGNOSTIC STRIP TEST SCH ×4 (07:30→20:49)
[2018-02-16] MEDS: PREDNISONE 20MG TABLET PO SCH ×2 (08:00→18:48)
[2018-02-16] MEDS: AMLODIPINE 5MG TABLET PO SCH ×2 (09:00→20:49)
[2018-02-16] MEDS: LIOTHYRONINE SODIUM 5MCG TABLET PO SCH ×2 (09:00→17:28)
[2018-02-16] MEDS: LEVOTHYROXINE SODIUM 100 MCG/ VIAL IV SCH (09:00)
[2018-02-16] MEDS: ENOXAPARIN 40MG/0.4ML SYR SUBCUT SCH (09:00)
[2018-02-16] MEDS: ONDANSETRON HCL 4MG/2ML VIAL IV PRN (09:33)
[2018-02-16] MEDS ORDERED: VANCOMYCIN 1250MG in DEXTROSE 5% WATER 250ML IV NR (10:00)
[2018-02-16] MEDS: NYSTATIN POWDER 15GM TOP SCH ×2 (11:20→17:02)
[2018-02-16] MEDS: INSULIN GLARGINE UD 100 UNITS/ML SYR SUBCUT SCH ×2 (11:23→22:29)
[2018-02-16] MEDS: CEFEPIME 2,000 MG in DEXT 5% WATER 100 ML IV SCH (16:27)
[2018-02-16] MEDS: BISACODYL 5MG TABLET PO PRN (22:39)
[2018-02-17] VITALS (15 sets, daily range): BP systolic 91–143; BP diastolic 49–85
[2018-02-17] MEDS: OXYCODONE HCL 5MG TABLET PO PRN ×3 (06:01→17:55)
[2018-02-17] MEDS: ONDANSETRON HCL 4MG/2ML VIAL IV PRN (06:24)
[2018-02-17] MEDS: PANTOPRAZOLE 40MG DR TABLET PO SCH (06:31)
[2018-02-17] MEDS: BLOOD SUGAR DIAGNOSTIC STRIP TEST SCH ×4 (07:32→21:25)
[2018-02-17] MEDS: AMLODIPINE 5MG TABLET PO SCH ×2 (09:00→21:22)
[2018-02-17] MEDS: LIOTHYRONINE SODIUM 5MCG TABLET PO SCH ×2 (09:16→17:54)
[2018-02-17] MEDS: LEVOTHYROXINE SODIUM 100 MCG/ VIAL IV SCH (09:17)
[2018-02-17] MEDS: CEFEPIME 2,000 MG in DEXT 5% WATER 100 ML IV SCH (09:17)
[2018-02-17] MEDS: NYSTATIN POWDER 15GM TOP SCH ×2 (09:17→17:54)
[2018-02-17] MEDS: ENOXAPARIN 40MG/0.4ML SYR SUBCUT SCH (09:18)
[2018-02-17] MEDS: INSULIN GLARGINE UD 100 UNITS/ML SYR SUBCUT SCH ×2 (09:20→21:24)
[2018-02-17] MEDS: INSULIN LISPRO 100 UNITS/ML SUBCUT SCH ×7 (09:22→21:25)
[2018-02-17] MEDS: PREDNISONE 20MG TABLET PO SCH ×2 (09:24→17:53)
[2018-02-17] MEDS: BISACODYL 5MG TABLET PO PRN (09:26)
[2018-02-17] MEDS ORDERED: LACTULOSE 20G/30ML UDC PO PRN (09:30)
[2018-02-17] MEDS: DOCUSATE SODIUM 100MG CAPSULE PO SCH ×2 (09:30→17:53)
[2018-02-17] MEDS ORDERED: VANCOMYCIN 1 G PREMIX 200 ML IV SCH (16:00)
[2018-02-17] MEDS ORDERED: SODIUM CHLORIDE 0.9% IV NR (18:00)
[2018-02-17] MEDS ORDERED: AMIKACIN SULFATE IV NR (18:00)
[2018-02-17] MEDS: IPRATROPIUM/ALBUTEROL 0.5-3(2.5)MG/3ML NEB INH PRN (20:56)
[2018-02-17] MEDS ORDERED: CEFEPIME 2,000 MG in DEXT 5% WATER 100 ML IV SCH (21:00)
[2018-02-17] MEDS: FAMOTIDINE 20MG TABLET PO SCH (21:22)
[2018-02-18] VITALS (9 sets, daily range): BP systolic 122–177; BP diastolic 47–103
[2018-02-18] MEDS: OXYCODONE HCL 5MG TABLET PO PRN ×2 (03:02→14:10)
[2018-02-18] MEDS: DIPHENHYDRAMINE 50MG/ML VIAL IV PRN (03:23)
[2018-02-18 07:01] LABS: HEMATOCRIT. 31.1 % (36.0-48.0); HEMOGLOBIN. 9.8 g/dL (12.0-16.0); MEAN CORPUSCULAR HEMOGLOBIN 23.9 pg (28.0-32.0); MEAN CORPUSCULAR VOLUME 75.9 fL (81.0-99.0); PLATELET 210 x1000/uL (130-400); RED CELL DISTRIBUTION WIDTH 20.4 % (11.6-14.6)
[2018-02-18 07:15] LABS: CHLORIDE 98 mEq/L (98-107)
[2018-02-18] MEDS: BLOOD SUGAR DIAGNOSTIC STRIP TEST SCH ×2 (07:50→12:17)
[2018-02-18] MEDS: INSULIN LISPRO 100 UNITS/ML SUBCUT SCH ×4 (08:00→12:35)
[2018-02-18] MEDS: FAMOTIDINE 20MG TABLET PO SCH ×2 (08:04→10:15)
[2018-02-18] MEDS: PREDNISONE 20MG TABLET PO SCH (08:05)
[2018-02-18] MEDS ORDERED: PREDNISONE 20MG TABLET PO SCH (09:00)
[2018-02-18] MEDS ORDERED: MORPHINE SULFATE 4 MG/ML CPJ (NOT FOR IM USE) IV PRN (09:45)
[2018-02-18] MEDS ORDERED: NA PHOS,M-B/NA PHOS,DI-BA ENEMA 118ML PR PRN (09:45)
[2018-02-18] MEDS: AMLODIPINE 5MG TABLET PO SCH (10:15)
[2018-02-18] MEDS: LEVOTHYROXINE SODIUM 100 MCG/ VIAL IV SCH (10:15)
[2018-02-18] MEDS ORDERED: ERYTHROMYCIN LACTOBIONATE 1,000 MG in SODIUM CHLORIDE 0.9% 250 ML IV SCH (10:15)
[2018-02-18] MEDS: DOCUSATE SODIUM 100MG CAPSULE PO SCH (10:15)
[2018-02-18] MEDS: LIOTHYRONINE SODIUM 5MCG TABLET PO SCH (10:16)
[2018-02-18] MEDS: NYSTATIN POWDER 15GM TOP SCH (10:17)
[2018-02-18] MEDS: ENOXAPARIN 40MG/0.4ML SYR SUBCUT SCH (10:17)
[2018-02-18] MEDS: INSULIN GLARGINE UD 100 UNITS/ML SYR SUBCUT SCH (10:20)
[2018-02-18] MEDS ORDERED: SULFAMETHOXAZOLE/TRIMETHOPRIM 800/160MG TABLET PO SCH (10:30)
[2018-02-18] MEDS ORDERED: AMIKACIN 500MG in SODIUM CHLORIDE 0.9% 100ML IV SCH (12:00)
[2018-02-18 12:25] LABS: PLATELET ESTIMATE NORMAL
== END 2018-02-18 14:40 | DRG 871 ==
LOC: EDBEDREQSVC 20:59 → EDBEDREQTM 21:01 → EDBEDREQ 21:01 → ENRESERV 21:57 → ER 23:32 → MICUNO 23:33 → 5EST 02-15 23:36
PROVIDERS: ADMIT Internal Medicine Nephrology; ATTEND Internal Medicine Nephrology
PROC: 5A09457 Assistance with Respiratory Ventilation, 24-96 Consecutive Hours, Continuous Positive Airway Pressure (ICD-10-PCS; 2018-02-12)
PROC: 02HV33Z Insertion of Infusion Device into Superior Vena Cava, Percutaneous Approach (ICD-10-PCS; 2018-02-12)
PROC: B548ZZA Ultrasonography of Superior Vena Cava, Guidance (ICD-10-PCS; 2018-02-12)
PROC: 5A09357 Assistance with Respiratory Ventilation, Less than 24 Consecutive Hours, Continuous Positive Airway Pressure (ICD-10-PCS; principal; 2018-02-14)
PROC: 5A1D70Z Performance of Urinary Filtration, Intermittent, Less than 6 Hours Per Day (ICD-10-PCS; 2018-02-14)
PROC: 5A1D70Z Performance of Urinary Filtration, Intermittent, Less than 6 Hours Per Day (ICD-10-PCS; 2018-02-16)
PROC: 5A1D70Z Performance of Urinary Filtration, Intermittent, Less than 6 Hours Per Day (ICD-10-PCS; 2018-02-18)
DX: A41.9 Sepsis, unspecified organism (principal); J96.02 Acute respiratory failure with hypercapnia; R65.21 Severe sepsis with septic shock; T84.53XA Infection and inflammatory reaction due to internal right knee prosthesis, initial encounter; J44.1 Chronic obstructive pulmonary disease with (acute) exacerbation; I13.0 Hypertensive heart and chronic kidney disease with heart failure and stage 1 through stage 4 chronic kidney disease, or unspecified chronic kidney disease; N17.9 Acute kidney failure, unspecified; N39.0 Urinary tract infection, site not specified; E87.1 Hypo-osmolality and hyponatremia; I50.30 Unspecified diastolic (congestive) heart failure; E87.2 Acidosis; F11.20 Opioid dependence, uncomplicated; Z68.43 Body mass index [BMI] 50.0-59.9, adult; L97.819 Non-pressure chronic ulcer of other part of right lower leg with unspecified severity; N18.9 Chronic kidney disease, unspecified; D64.9 Anemia, unspecified; E11.22 Type 2 diabetes mellitus with diabetic chronic kidney disease; E66.01 Morbid (severe) obesity due to excess calories; E87.5 Hyperkalemia; E89.0 Postprocedural hypothyroidism; F32.9 Major depressive disorder, single episode, unspecified; I87.8 Other specified disorders of veins; Z96.651 Presence of right artificial knee joint; F41.9 Anxiety disorder, unspecified; G47.33 Obstructive sleep apnea (adult) (pediatric); K21.9 Gastro-esophageal reflux disease without esophagitis; M24.461 Recurrent dislocation, right knee; Z79.4 Long term (current) use of insulin; Z79.890 Hormone replacement therapy; Z79.899 Other long term (current) drug therapy; Z82.49 Family history of ischemic heart disease and other diseases of the circulatory system; Z85.850 Personal history of malignant neoplasm of thyroid; Z86.73 Personal history of transient ischemic attack (TIA), and cerebral infarction without residual deficits; Z90.710 Acquired absence of both cervix and uterus; Z91.15 Patient's noncompliance with renal dialysis; Z98.84 Bariatric surgery status; Z99.81 Dependence on supplemental oxygen; Z88.8 Allergy status to other drugs, medicaments and biological substances; Z79.82 Long term (current) use of aspirin
CPT/HCPCS: 36415; 36569; 36600; 71045; 73560; 76770; 76937; 80048; 80053; 80202; 81003; 82375; 82550; 82553; 82805; 82962; 83036; 83520; 83605; 83735; 83880; 84403; 84439; 84443; 84481; 84484; 85025; 85610; 85730; 86141; 86376; 86850; 86900; 87040; 87070; 87077; 87086; 87106; 87186; 87205; 92610; 93005; 93970; 94640; 94660; 96361; 96365; 96368; 96375; 97162; 97167; 99291; C1752; C9113; G0482; J0278; J0692; J1170; J1200; J1644; J1650; J1815; J2405; J2543; J2920; J2930; J3370; J3490; J7030; J7040; J7050; J7060; J7512; J7611; J7620; A4315